=== PATIENT | male | born 1995 | race Caucasian/White ===

== ENCOUNTER → 2018-08-22 | Emergency (ER) | payer MEDICAID ==
[~2018-08-22] VITALS: Ht 177.8 cm; Wt 74.8 kg
[~2018-08-22] MED LIST: DOXYCYCLINE HY100 M2 PO; NKM
--- NOTE | 2018-08-22 19:32 | NUR ---
ED Nurse Note: Received report. Pt from home, AAOx4, ambulatory, c/o abdominal pain in left, lower quandrant with nausea but no diarrhea for 4 days. Pt presented with temp 99.0 F upon arrival to ED. Will assess and carry out ER MD's orders. Addendum: 08/22/18 at 1937 by TSERING Pt clarified that pain was coming from left groin fold and that he also has pain in his left lower back. Both pain areas are 2/10.
[2018-08-22 19:39] VITALS: BP 147/78
[2018-08-22 20:16] LABS: APPEARANCE,URINE CLEAR; BILIRUBIN, URINE NEGATIVE (NEGATIVE); COLOR,URINE PALE YELLOW; GLUCOSE, URINE (UA) NEGATIVE (NEGATIVE); KETONES,URINE NEGATIVE (NEGATIVE); LEUKOCYTE ESTERASE ,URINE NEGATIVE (NEGATIVE); NITRITE,URINE NEGATIVE (NEGATIVE); PH,URINE 7 (4.5-8.0); PROTEIN,URINE NEGATIVE (NEGATIVE); UROBILINOGEN,URINE NORMAL MG/DL (0.0-1.0)
[2018-08-22 20:25] LABS: BASOPHILS % (AUTO) 1.1 % (0.0-2.0); EOSINOPHILS % (AUTO) 6.2 % (0.0-3.0); HEMATOCRIT 42.1 % (42.0-52.0); HEMOGLOBIN 13.3 G/DL (14.2-18.0); LYMPHOCYTES % (AUTO) 38.1 % (20.0-45.0); MEAN CORPUSCULAR VOLUME 65 FL (80-99); MONOCYTES % (AUTO) 6.2 % (1.0-10.0); NEUTROPHILS % (AUTO) 48.3 % (45.0-75.0); PLATELET COUNT 164 K/UL (150-450); RED BLOOD COUNT 6.52 M/UL (4.70-6.10); RED CELL DISTRIBUTION WIDTH 11.9 % (11.6-14.8); WHITE BLOOD COUNT 5.7 K/UL (4.8-10.8)
[2018-08-22 20:30] LABS: ANION GAP 8 mmol/L (5-15); BLOOD UREA NITROGEN 11 mg/dL (7-18); CALCIUM 8.9 MG/DL (8.5-10.1); CARBON DIOXIDE 29 MMOL/L (21-32); CHLORIDE 105 MMOL/L (98-107); CREATININE 1.2 MG/DL (0.55-1.30); POTASSIUM 3.7 MMOL/L (3.5-5.1); SODIUM 142 MMOL/L (136-145)
[2018-08-22 20:41] LABS: ALANINE AMINOTRANSFERASE 23 U/L (12-78); ALBUMIN 4.3 G/DL (3.4-5.0); ALBUMIN/GLOBULIN RATIO 1.5 (1.0-2.7); ALKALINE PHOSPHATASE 80 U/L (46-116); ASPARTATE AMINO TRANSFERASE 32 U/L (15-37); BILIRUBIN,TOTAL 2.1 MG/DL (0.2-1.0); CREATINE KINASE 440 U/L (26-308)
[2018-08-22 20:45] LABS: BILIRUBIN,DIRECT 0.3 MG/DL (0.0-0.3)
--- NOTE | 2018-08-22 20:51 | Diagnostic Imaging Report ---
EXAM: CT Abdomen and Pelvis Without Intravenous Contrast CLINICAL HISTORY: PAIN TECHNIQUE: Axial computed tomography images of the abdomen and pelvis without intravenous contrast. CTDI is 12.05 mGy and DLP is 612 mGy-cm. One or more of the following dose reduction techniques were used: automated exposure control, adjustment of the mA and/or kV according to patient size, use of iterative reconstruction technique. COMPARISON: none FINDINGS: Lung bases: Unremarkable. No mass. No consolidation. ABDOMEN: Liver: Unremarkable. Gallbladder and bile ducts: Unremarkable. No calcified stones. No ductal dilation. Pancreas: Unremarkable. No ductal dilation. Spleen: Unremarkable. No splenomegaly. Adrenals: Unremarkable. No mass. Kidneys and ureters: Unremarkable. No obstructing stones. No hydronephrosis. Stomach and bowel: Unremarkable. No obstruction. No mucosal thickening. PELVIS: Appendix: No findings to suggest acute appendicitis. Bladder: Unremarkable. No stones. Reproductive: Unremarkable as visualized. ABDOMEN and PELVIS: Intraperitoneal space: Trace pelvic free fluid. No free air. Bones/joints: No acute fracture. No dislocation. Soft tissues: Unremarkable. Vasculature: Unremarkable. No abdominal aortic aneurysm. Lymph nodes: Unremarkable. No enlarged lymph nodes. IMPRESSION: Trace pelvic free fluid. Clinical significance uncertain. Otherwise negative noncontrast abdomen and pelvis CT.
--- NOTE | 2018-08-22 21:03 | Emergency Room Report ---
History of Present Illness General Chief Complaint: Abdominal Pain Source: Patient Present Illness HPI 22-year-old male with no significant past medical history here complaining of 2 days of right-sided scrotal pain radiating to left flank. Patient denies painful urination, penile discharge and reports he is sexually active with the same partner. Patient reports that he went to 2 different urgent care in the past 2 days urine was clear and was not given any antibiotics he was prescribed naproxen which did not help with his symptoms. Patient reports that about a year ago he had epididymitis and took antibiotics with minimal relief. Denies any history of testicular torsion, rating the pain 3 out of 10 worse when he is standing. Denies fever, chills, nausea vomiting. Denies chest pain, shortness of breath, palpitation, dizziness and headache. Denies drug use, smoking alcohol intake. Denies numbness and inner thighs and buttocks area. Allergies: Coded Allergies: No Known Allergies (Unverified , 08/22/18) Patient History Past Medical History: see triage record Past Surgical History: unable to obtain Pertinent Family History: none Immunizations: UTD Reviewed Nursing Documentation: PMH: Agreed; PSxH: Agreed Nursing Documentation-PMH Past Medical History: No History, Except For Hx Asthma: Yes Review of Systems All Other Systems: negative except mentioned in HPI Physical Exam Vital Signs Date Time Temp Pulse Resp B/P (MAP) Pulse Ox O2 Delivery O2 Flow Rate FiO2 08/22/18 19:16 99.0 81 15 141/82 (101) 99 Room Air Sp02 EP Interpretation: reviewed, normal General Appearance: normal inspection, well appearing, no apparent distress Head: normocephalic Eyes: bilateral eye normal inspection, bilateral eye PERRL ENT: normal ENT inspection, hearing grossly normal, normal pharynx Neck: normal inspection, supple Respiratory: normal inspection, chest non-tender, normal breath sounds, no respiratory distress, no wheezing Cardiovascular #1: normal inspection, normal peripheral pulses, regular rate, rhythm, no murmur, normal capillary refill Gastrointestinal: non tender, soft, no mass, no guarding, no hernia Genitourinary: no CVA tenderness, penis normal, scrotum normal Musculoskeletal: normal inspection, back normal Neurologic: normal inspection, alert Psychiatric: normal inspection, judgement/insight normal Skin: normal inspection, normal color, no rash, warm/dry, palpation normal Lymphatic: normal inspection, no adenopathy Medical Decision Making PA Attestation All my diagnosis and treatment plans were reviewed ad discussed with my supervising physician Dr. Nielsen Diagnostic Impression: Primary Impression: Testicular pain, unspecified ER Course 22-year-old male with no significant past medical history here complaining of 2 days of right-sided scrotal pain radiating to left flank. Patient denies painful urination, penile discharge and reports he is sexually active with the same partner. Patient reports that he went to 2 different urgent care in the past 2 days urine was clear and was not given any antibiotics he was prescribed naproxen which did not help with his symptoms. Patient reports that about a year ago he had epididymitis and took antibiotics with minimal relief. Denies any history of testicular torsion, rating the pain 3 out of 10 worse when he is standing. Denies fever, chills, nausea vomiting. Denies chest pain, shortness of breath, palpitation, dizziness and headache. Denies drug use, smoking alcohol intake. Denies numbness and inner thighs and buttocks area. Ddx considered but are not limited to: appendicitis, cholycisitis, gastritis, gasthroentritis, UTI, pylonephritis, testicular torsion, epididymitis, renal stone Vital signs: are WNL, pt. is afebrile H&PE are most consistent with: Testicular pain ORDERS: abdominal CT, abdominal pain set, scrotal ultrasound, doxycylcine ED INTERVENTIONS: None required at this time. DISCHARGE: At this time pt. is stable for d/c to home. Will provide printed patient care instructions, and any necessary prescriptions. Care plan and follow up instructions have been discussed with the patient prior to discharge. Patient to follow-up with her primary care provider for referral to urologist as well as general surgery for evaluation of inguinal hernia as he can be reduced there is no sign of incarceration patient no acute distress advised the patient to follow-up with the primary care provider for referral to urologist also another ultrasound to be done avoid lifting heavy objects due to possibility of a small left inguinal hernia CT/MRI/US Diagnostic Results CT/MRI/US Diagnostic Results #1: Imaging Test Ordered: abd CT no contrast Impression Lung bases: Unremarkable. No mass. No consolidation. ABDOMEN: Liver: Unremarkable. Gallbladder and bile ducts: Unremarkable. No calcified stones. No ductal dilation. Pancreas: Unremarkable. No ductal dilation. Spleen: Unremarkable. No splenomegaly. Adrenals: Unremarkable. No mass. Kidneys and ureters: Unremarkable. No obstructing stones. No hydronephrosis. Stomach and bowel: Unremarkable. No obstruction. No mucosal thickening. PELVIS: Appendix: No findings to suggest acute appendicitis. Bladder: Unremarkable. No stones. Reproductive: Unremarkable as visualized. ABDOMEN and PELVIS: Intraperitoneal space: Trace pelvic free fluid. No free air. Bones/joints: No acute fracture. No dislocation. Soft tissues: Unremarkable. Vasculature: Unremarkable. No abdominal aortic aneurysm. Lymph nodes: Unremarkable. No enlarged lymph nodes. IMPRESSION: Trace pelvic free fluid. Clinical significance uncertain. Otherwise negative noncontrast abdomen and pelvis CT. CT/MRI/US Diagnostic Results #2: Imaging Test Ordered: scrotal US Impression TECHNIQUE: Real-time ultrasound of the scrotum with color Doppler and image documentation. COMPARISON: No relevant prior studies available. FINDINGS: Right testicle: Unremarkable. No mass. No torsion. Left testicle: Unremarkable. No mass. No torsion. Epididymides: Unremarkable. Scrotum: Unremarkable. IMPRESSION: No testicular torsion. Last Vital Signs Date Time Temp Pulse Resp B/P (MAP) Pulse Ox O2 Delivery O2 Flow Rate FiO2 08/22/18 19:39 99.0 74 17 147/78 99 Room Air Disposition: HOME, SELF-CARE Condition: Stable Patient Instructions: Inguinal Hernia, Adult, [id number], Testicular Self- Exam, [id number] Additional Instructions: Patient to follow-up with her primary care provider for referral to urologist as well as general surgery for evaluation of inguinal hernia as he can be reduced there is no sign of incarceration patient no acute distress advised the patient to follow-up with the primary care provider for referral to urologist also another ultrasound to be done avoid lifting heavy objects due to possibility of a small left inguinal hernia Carlos Viveros Aug 22, 2018 21:03
--- NOTE | 2018-08-22 21:44 | Diagnostic Imaging Report ---
EXAM: US Scrotum CLINICAL HISTORY: PAIN TECHNIQUE: Real-time ultrasound of the scrotum with color Doppler and image documentation. COMPARISON: No relevant prior studies available. FINDINGS: Right testicle: Unremarkable. No mass. No torsion. Left testicle: Unremarkable. No mass. No torsion. Epididymides: Unremarkable. Scrotum: Unremarkable. IMPRESSION: No testicular torsion.
== END | disposition home or self-care (01) ==
LOC: EMR 19:36
DX: N50.811 Right testicular pain (principal)
CPT/HCPCS: 36415; 74176; 76870; 80053; 81003; 82248; 82550; 85025; 87491; 87590; 99284